=== PATIENT | female | born 1975 | race American Indian/Alaskan Native ===

== ENCOUNTER 2017-07-22 19:23 | Emergency (ER) | payer SELFPAY ==
[2017-07-22 20:09] LABS: Basophils # (Auto) 0.1 K/mm3 (0.0-0.1); Basophils % (Auto) 0.7 % (0.0-1.8); Eosinophils % (Auto) 0.3 % (0.0-4.3); Hemoglobin 8.9 gm/dl (10.1-14.3); Lymphocytes # (Auto) 1.1 K/mm3 (1.2-5.4); Lymphocytes % (Auto) 10.6 % (13.4-35.0); Mean Corpuscular HGB Conc 30 % (30-34); Red Blood Count 5.62 M/mm3 (3.65-5.03)
[2017-07-22 20:10] LABS: Hematocrit 29.8 % (30.3-42.9); Mean Corpuscular Hemoglobin 16 pg (28-32); Mean Corpuscular Volume 53 fl (79-97); Platelet Count 185 K/mm3 (140-440); Red Cell Distribution Width 22.7 % (13.2-15.2)
[2017-07-22 20:20] LABS: BUN/Creatinine Ratio 10; Blood Urea Nitrogen 5 mg/dL (7-17); Calcium 8.6 mg/dL (8.4-10.2); Hemolysis Index 12
[2017-07-22] MEDS ORDERED: TYLENOL PO ONE (20:38)
[2017-07-22] MEDS ORDERED: NACL 0.9% 1000 ML 1,000 ML IV ONE (20:38)
[2017-07-22] MEDS ORDERED: TORADOL IV ONE (20:38)
[2017-07-22] MEDS ORDERED: ZOFRAN IV ONE (20:38)
[2017-07-22] MEDS ORDERED: PROVENTIL IH ONE (20:39)
--- NOTE | 2017-07-22 20:40 | Emergency Department Report ---
ED General Adult HPI - General Chief complaint: Upper Respiratory Infection Stated complaint: GENERAL ILLNESS Time Seen by Provider: 07/22/17 20:11 Source: patient, RN notes reviewed Mode of arrival: Ambulatory Limitations: No Limitations - History of Present Illness Initial comments: This is a 41-year-old female, the patient is previously unknown to this provider , she does not have a local primary care doctor, who reports a past medical history of hypertension. Her last menstrual period was June 22, and she has not delivered her given within the past 2 months. Patient presents to the ER with a complaint of frontal headache, shortness of breath, cough, chills, nausea, vomiting 2, chest wall pain with coughing since . Patient reports multiple recent trips to various states for work. There is no leg pain and there is no leg swelling, there is no hematemesis, there is no bright red blood per rectum, there is no neck pain, there is no neck stiffness. -: Gradual, days(s) Location: chest Radiation: non-radiation Quality: aching Consistency: intermittent Improves with: rest Worsens with: movement Associated Symptoms: chest pain, cough, fever/chills, loss of appetite, malaise , shortness of breath, weakness. denies: confusion, diaphoresis, headaches, nausea/vomiting, rash, seizure, syncope - Related Data Previous Rx's Medication Instructions Recorded Last Taken Type HYDROcodone/APAP 5-325 [[place] 1 each PO Q6HR PRN #20 tablet 04/11/15 Unknown Rx 5/325] Hydrochlorothiazide [HCTZ] 25 mg PO QDAY #30 tablet 04/11/15 Unknown Rx Acetaminophen [Tylenol Arthritis] 650 mg PO Q6HR PRN #30 tablet.er 07/23/17 Unknown Rx Albuterol Sulfate [Proair 90 mcg IH Q4HR PRN #2 aer.pow.ba 07/23/17 Unknown Rx Respiclick] Azithromycin [Zithromax TAB] 250 mg PO QDAY #4 tablet 07/23/17 Unknown Rx Ibuprofen [Motrin] 600 mg PO Q8H PRN #30 tablet 07/23/17 Unknown Rx Ondansetron [Zofran Odt] 4 mg PO Q8HR PRN #20 tab.rapdis 07/23/17 Unknown Rx Allergies Allergy/AdvReac Type Severity Reaction Status Date / Time No Known Allergies Allergy Unverified 04/11/15 13:51 ED Review of Systems ROS: Stated complaint: GENERAL ILLNESS Other details as noted in HPI Comment: All other systems reviewed and negative ED Past Medical Hx - Past Medical History Hx Hypertension: Yes - Surgical History Past Surgical History?: No - Social History Smoking Status: Never Smoker Substance Use Type: None - Medications Home Medications: Home Medications Medication Instructions Recorded Confirmed Last Taken Type HYDROcodone/APAP 5-325 [[place] 1 each PO Q6HR PRN #20 tablet 04/11/15 Unknown Rx 5/325] Hydrochlorothiazide [HCTZ] 25 mg PO QDAY #30 tablet 04/11/15 Unknown Rx Acetaminophen [Tylenol Arthritis] 650 mg PO Q6HR PRN #30 tablet.er 07/23/17 Unknown Rx Albuterol Sulfate [Proair 90 mcg IH Q4HR PRN #2 aer.pow.ba 07/23/17 Unknown Rx Respiclick] Azithromycin [Zithromax TAB] 250 mg PO QDAY #4 tablet 07/23/17 Unknown Rx Ibuprofen [Motrin] 600 mg PO Q8H PRN #30 tablet 07/23/17 Unknown Rx Ondansetron [Zofran Odt] 4 mg PO Q8HR PRN #20 tab.rapdis 07/23/17 Unknown Rx ED Physical Exam - General Limitations: No Limitations General appearance: alert, in no apparent distress - Head Head exam: Present: atraumatic, normocephalic - Eye Eye exam: Present: normal appearance, PERRL, EOMI, other (visual acuity intact to finger counting, color perception, reading at a close distance). Absent: nystagmus - ENT ENT exam: Present: normal exam, normal orophraynx, mucous membranes moist, normal external ear exam - Neck Neck exam: Present: normal inspection, full ROM - Respiratory Respiratory exam: Present: rhonchi (rhonchi/rales noted in the left lower lung field). Absent: respiratory distress, wheezes, accessory muscle use, decreased breath sounds, prolonged expiratory - Cardiovascular Cardiovascular Exam: Present: regular rate, normal rhythm, systolic murmur ( there is a 2/6 systolic murmur, crescendo decrescendo in the right and left second intercostal space, radiates up to the bilateral neck). Absent: diastolic murmur, rubs, gallop - GI/Abdominal GI/Abdominal exam: Present: soft, normal bowel sounds. Absent: distended, tenderness, guarding, rebound, rigid, pulsatile mass - Extremities Exam Extremities exam: Present: normal inspection, full ROM, normal capillary refill. Absent: pedal edema, joint swelling, calf tenderness - Back Exam Back exam: Present: normal inspection, full ROM. Absent: tenderness, CVA tenderness (R), paraspinal tenderness, vertebral tenderness - Neurological Exam Neurological exam: Present: alert, oriented X3, CN II-XII intact (there is no pass pointing. There is negative [id number]. There is negative pronator drift.), other (Extraocular movements intact. Tongue midline. No facial droop. Facial sensation intact to light touch in the V1, V2, V3 distribution bilaterally. 5 and 5 strength in 4 extremities.. Sensation is intact to light touch in 4 extremities.). Absent: motor sensory deficit - Psychiatric Psychiatric exam: Present: normal affect, normal mood - Skin Skin exam: Present: warm, dry, intact, normal color. Absent: rash ED Course Vital Signs 07/22/17 07/22/17 07/22/17 15:33 19:27 19:32 Temperature 100.9 F H Pulse Rate 103 H 100 H Respiratory 20 25 H Rate Blood Pressure 117/69 175/75 117/69 O2 Sat by Pulse 96 92 97 Oximetry 07/22/17 07/22/17 07/22/17 19:41 19:45 20:10 Temperature 102.9 F H Pulse Rate 99 H Respiratory 21 18 Rate Blood Pressure 140/72 O2 Sat by Pulse 98 97 Oximetry 07/22/17 07/22/17 07/22/17 20:15 20:31 20:45 Temperature Pulse Rate 99 H 94 H 93 H Respiratory 13 25 H 26 H Rate Blood Pressure 140/72 140/72 140/72 O2 Sat by Pulse 96 97 97 Oximetry 07/22/17 07/22/17 07/22/17 21:01 21:15 21:16 Temperature Pulse Rate 91 H 86 Respiratory 31 H 22 18 Rate Blood Pressure 152/85 152/85 O2 Sat by Pulse 96 100 Oximetry 07/22/17 07/22/17 07/22/17 21:30 21:45 22:00 Temperature Pulse Rate 95 H 98 H 100 H Respiratory 29 H 21 21 Rate Blood Pressure 139/62 139/62 139/71 O2 Sat by Pulse 99 96 87 Oximetry 07/22/17 07/22/17 07/22/17 22:15 22:30 22:45 Temperature Pulse Rate 97 H 98 H 95 H Respiratory 23 28 H 29 H Rate Blood Pressure 139/71 131/69 131/69 O2 Sat by Pulse 94 88 94 Oximetry 07/22/17 07/22/17 07/22/17 23:00 23:15 23:30 Temperature Pulse Rate 93 H 89 88 Respiratory 25 H 27 H 26 H Rate Blood Pressure 134/70 134/70 129/79 O2 Sat by Pulse 94 100 97 Oximetry 07/22/17 07/23/17 23:45 00:00 Temperature Pulse Rate 88 83 Respiratory 26 H Rate Blood Pressure 129/79 147/74 O2 Sat by Pulse 99 97 Oximetry - Reevaluation(s) Reevaluation #1: 07/23/17 00:52 Patient reassessed multiple times while in the emergency department. She feels much improved after appropriate supportive care. Her d-dimer was elevated, and a CT scan of the chest suggested a left lower lobe pneumonia/pneumonitis, consistent with her history and physical examination. The patient is tolerating oral feeds and does not have significant medical comorbidities, and she is suitable for trial of outpatient management, and will be discharged with appropriate antibiotics, pain medication, nausea medication. Patient is instructed to follow-up with an outpatient primary care doctor and sausage linker. Her family is at the bedside, she is suitable for discharge. Return precautions are reviewed. ED Medical Decision Making - Lab Data Result diagrams: 07/22/17 19:38 07/22/17 19:38 Vital Signs 07/22/17 07/22/17 07/22/17 19:27 19:41 20:10 Temperature 100.9 F H 102.9 F H Pulse Rate 103 H Respiratory 20 18 Rate Blood Pressure 175/75 O2 Sat by Pulse 92 97 Oximetry 07/22/17 07/22/17 21:15 21:16 Temperature Pulse Rate Respiratory 18 18 Rate Blood Pressure O2 Sat by Pulse Oximetry Lab Results 07/22/17 07/22/17 07/22/17 Range/Units 19:38 19:38 20:41 WBC 10.4 (4.5-11.0) K/mm3 RBC 5.62 H (3.65-5.03) M/mm3 Hgb 8.9 L (10.1-14.3) gm/dl Hct 29.8 L (30.3-42.9) % MCV 53 L (79-97) fl MCH 16 L (28-32) pg MCHC 30 (30-34) % RDW 22.7 H (13.2-15.2) % Plt Count 185 (140-440) K/mm3 Lymph % (Auto) 10.6 L (13.4-35.0) % Bacon % (Auto) 10.0 H (0.0-7.3) % Eos % (Auto) 0.3 (0.0-4.3) % Baso % (Auto) 0.7 (0.0-1.8) % Lymph # 1.1 L (1.2-5.4) K/mm3 Bacon # 1.0 H (0.0-0.8) K/mm3 Eos # 0.0 (0.0-0.4) K/mm3 Baso # 0.1 (0.0-0.1) K/mm3 Seg Neutrophils % 78.4 H (40.0-70.0) % Seg Neutrophils # 8.1 H (1.8-7.7) K/mm3 PT 15.4 H (12.2-14.9) Sec. INR 1.16 H (0.87-1.13) D-Dimer 3109.33 H (0-234) ng/mlDDU Sodium 137 (137-145) mmol/L Potassium 3.5 L (3.6-5.0) mmol/L Chloride 95.5 L (98-107) mmol/L Carbon Dioxide 28 (22-30) mmol/L Anion Gap 17 mmol/L BUN 5 L (7-17) mg/dL Creatinine 0.5 L (0.7-1.2) mg/dL Estimated GFR > 60 ml/min BUN/Creatinine Ratio 10 % Glucose 135 H (65-100) mg/dL Calcium 8.6 (8.4-10.2) mg/dL Total Creatine Kinase (30-135) units/L Troponin T (0.00-0.029) ng/mL HCG, Quant (0-4) mIU/mL 07/22/17 07/22/17 07/22/17 Range/Units 20:41 20:41 20:41 WBC (4.5-11.0) K/mm3 RBC (3.65-5.03) M/mm3 Hgb (10.1-14.3) gm/dl Hct (30.3-42.9) % MCV (79-97) fl MCH (28-32) pg MCHC (30-34) % RDW (13.2-15.2) % Plt Count (140-440) K/mm3 Lymph % (Auto) (13.4-35.0) % Bacon % (Auto) (0.0-7.3) % Eos % (Auto) (0.0-4.3) % Baso % (Auto) (0.0-1.8) % Lymph # (1.2-5.4) K/mm3 Bacon # (0.0-0.8) K/mm3 Eos # (0.0-0.4) K/mm3 Baso # (0.0-0.1) K/mm3 Seg Neutrophils % (40.0-70.0) % Seg Neutrophils # (1.8-7.7) K/mm3 PT (12.2-14.9) Sec. INR (0.87-1.13) D-Dimer (0-234) ng/mlDDU Sodium (137-145) mmol/L Potassium (3.6-5.0) mmol/L Chloride (98-107) mmol/L Carbon Dioxide (22-30) mmol/L Anion Gap mmol/L BUN (7-17) mg/dL Creatinine (0.7-1.2) mg/dL Estimated GFR ml/min BUN/Creatinine Ratio % Glucose (65-100) mg/dL Calcium (8.4-10.2) mg/dL Total Creatine Kinase 214 H (30-135) units/L Troponin T < 0.010 (0.00-0.029) ng/mL HCG, Quant < 2 (0-4) mIU/mL - EKG Data -: EKG Interpreted by Ca EKG shows normal: sinus rhythm Rate: normal - EKG Data When compared to previous EKG there are: previous EKG unavailable 07/23/17 00:27 Sinus tachycardia, 100 bpm, normal axis, QTC within normal limits, normal intervals, poor R-wave progression, borderline high left ventricular voltage, abnormal EKG, consistent with a STEMI, unchanged from prehospital EKG. - Radiology Data Radiology results: report reviewed, image reviewed X-ray the chest is negative for acute disease - Medical Decision Making Differential diagnosis, including the not limited to: Pneumonia, viral syndrome , pulmonary embolus, costochondritis, pericarditis, myocarditis Assessment and plan: 41-year-old female with low-grade fever, tachycardia, focal breath sounds noted in her left lower lung barcenas on physical exam, x-ray the chest is negative, but have high suspicion for pneumonia clinically. However, patient reports numerous trips in the past month for her job, and given low-grade fever and tachycardia, as well as endorsed shortness of breath and near syncope, d-dimer was ordered, and elevated. CT scan of the chest is pending, patient given IV fluids, Tylenol, Toradol, albuterol, patient will be reassessed. Low risk for major adverse cardiac event, chest wall pain present for days, patient low risk by MICHELLE score, low risk by heart score, as per the emergency physician's clinical policy, myocardial infarction may be excluded with one set of troponin such cardiac enzymes if symptoms have present for greater than 8 hours. Critical care attestation.: If time is entered above; I have spent that time in minutes in the direct care of this critically ill patient, excluding procedure time. ED Disposition Clinical Impression: Left lower lobe pneumonia Disposition: DC-01 TO HOME OR SELFCARE Is pt being admited?: No Does the pt Need Aspirin: No Condition: Stable Instructions: Bacterial Pneumonia (ED) Additional Instructions: Follow-up with a sausage linker within the next 4-6 weeks for cardiac murmur suggestive of aortic stenosis. Take the pain medication, nausea medication as needed/directed. Take antibiotics, breathing medication as directed. Follow up in 3-4 days for a recheck. Follow-up with either her primary care doctor, or urgent care center , or return to the ER for repeat evaluation. Return to the ER right away with lethargy, irritability, projectile vomiting, change in mental status, confusion , worsening shortness of breath, inability to tolerate liquid feeds. Referrals: RYAN BEEBE MD [Primary Care Provider] - 3-5 Days [facility] [Provider Group] - 3-5 Days [facility] [Provider Group] - 3-5 Days [facility] [Provider Group] - 3-5 Days
--- NOTE | 2017-07-22 21:34 | XRay Report ---
FINAL REPORT PROCEDURE: XR CHEST ROUTINE 2V TECHNIQUE: PA and lateral chest radiographs were obtained. CPT 00179 HISTORY: Shortness of breath COMPARISON: No prior studies are available for comparison. FINDINGS: Heart: Heart is enlarged.. Mediastinum/Vessels: Normal. Lungs/Pleural space: Lungs are clear and expanded. There are no infiltrates, effusions or pneumothoraces.. Bony thorax: No acute osseous abnormality. Other: IMPRESSION: Heart is enlarged. Lungs are clear..
[2017-07-22 21:36] LABS: INR 1.16 (0.87-1.13)
[2017-07-22] MEDS ORDERED: NACL ONE (23:51)
--- NOTE | 2017-07-23 00:48 | Cat Scan Report ---
FINAL REPORT PROCEDURE: CT ANGIO CHEST TECHNIQUE: Computerized tomographic angiography of the chest was performed after the IV injection of iodinated nonionic contrast including image processing. The image data was postprocessed using 2-dimensional multiplanar reformatted (MPR) and 3-dimensional (MIP and/or volume rendered) techniques. HISTORY: cp sob ? lll pneumonia COMPARISON: No prior studies are available for comparison. FINDINGS: Heart and pericardium: The heart is enlarged.. Thoracic aorta: There is no thoracic aortic aneurysm or dissection.. Pulmonary vasculature: There is no pulmonary embolism.. Lymph nodes: No enlarged thoracic lymph nodes. Lungs: There are left lower lobe pulmonary infiltrates. The lungs are otherwise clear and expanded.. Pleural space: No effusion, thickening, or pneumothorax. Musculoskeletal structures: No significant abnormality. Upper abdominal structures: No significant abnormality. IMPRESSION: The heart is enlarged. There is no thoracic aortic aneurysm or dissection. There is no pulmonary embolism. Focal acute left lower lobe pneumonitis.
[2017-07-23] MEDS ORDERED: ROCEPHIN/NS 1 GM/50 ML 1 GM/50 ML BAG IV ONE (00:52)
[2017-07-23] MEDS ORDERED: ZITHROMAX PO ONE (00:52)
[2017-07-23 01:59] VITALS: BP 150/80
== END 2017-07-23 01:45 | disposition home or self-care (01) ==
LOC: ED 19:23
DX: J18.9 Pneumonia, unspecified organism (principal); I10 Essential (primary) hypertension
CPT/HCPCS: 36415; 71046; 71275; 80048; 82550; 84484; 84702; 85025; 85379; 85610; 93005; 93010; 96361; 96365; 96375; 99285; J1885; J2405; J7030; Q9967

== ENCOUNTER 2018-09-24 15:11 | Emergency (ER) | payer OTHER ==
--- NOTE | 2018-09-24 15:45 | Emergency Department Report ---
HPI - General Chief Complaint: Extremity Injury, Lower Time Seen by Provider: 09/24/18 15:36 - HPI HPI: She was a pleasant 43-year-old comes in with acute on chronic knee pain. She started a job and it is requiring her to walk and stand quite a bit more than she is used to. And this seems to be aggravating an old injury. She states that the knee has hurt for years. Patient is morbidly obese. Patient denies being on any medications at this time. ED Past Medical Hx - Past Medical History Hx Hypertension: Yes - Surgical History Past Surgical History?: No - Family History Family history: no significant - Social History Smoking Status: Never Smoker Substance Use Type: None - Medications Home Medications: Home Medications Medication Instructions Recorded Confirmed Last Taken Type hydroCHLOROthiazide [HCTZ] 25 mg PO QDAY #30 tablet 04/11/15 Unknown Rx Albuterol Sulfate [Proair 90 mcg IH Q4HR PRN #2 aer.pow.ba 07/23/17 Unknown Rx Respiclick] predniSONE [Deltasone] 20 mg PO DAILY #5 tablet 09/24/18 Unknown Rx ED Review of Systems ROS: Stated complaint: R KNEE PAIN Other details as noted in HPI Comment: All other systems reviewed and negative Physical Exam - Physical Exam Physical Exam: WDWN patient in NAD VS per RN flow sheet Alert and oriented to person, place and time. S1-S2. No S3 or S4. No systolic or diastolic murmur. No JVD. No pitting edema. Lungs clear to auscultation bilaterally anteriorly and posteriorly. Abdomen soft nontender bowel soundsX4 Moves all extremities well. CAN FULLY EXTEND AND FLEX THE KNEE. NO CYST. NO JOINT LINE TENDERNESS. NO DISTAL SWELLING. DP PLUS 2. NO EFFUSION BUT LIMITED W BODY HABITUS. Mood and affect appropriate. ED Medical Decision Making - Radiology Data Radiology results: report reviewed, image reviewed - Medical Decision Making MEDICATED WITH TORADOL XRAY NOTED NEUROVASC INTACT DC HOME WITH ORTHO FOLLOW UP VS ARE NORMAL. RN ASKED TO DOCUMENT THEM. Critical care attestation.: If time is entered above; I have spent that time in minutes in the direct care of this critically ill patient, excluding procedure time. ED Disposition Clinical Impression: Knee pain, Arthritis, Morbid obesity, Joint effusion of knee Disposition: DC-01 TO HOME OR SELFCARE Is pt being admited?: No Does the pt Need Aspirin: No Condition: Stable Instructions: Knee Pain (ED) Additional Instructions: DIET TOLERATED MEDS ORDERED TODAY IN ER FOLLOW INSTRUCTIONS ON THE BOTTLE FOLLOW UP WITH DR AVENDAÑO IF THIS PERSISTS. YOU MAY NEED MRI ACTIVITY TOLERATED MOTRIN OR TYLENOL OVER THE COUNTER FOR PAIN RETURN TO THE ER FOR WORSENING SYMPTOMS NOT RELIEVED BY YOUR MEDICATIONS. REDUCING YOUR WEIGHT MAY HELP ICE AND ELEVATED WHEN AT HOME. Referrals: KATIA AVENDAÑO MD [Staff Physician] - 3-5 Days Forms: Work/School Release Form(ED) Time of Disposition: 16:29
[2018-09-24] MEDS ORDERED: TORADOL IM ONE (16:24)
--- NOTE | 2018-09-24 16:29 | XRay Report ---
PROCEDURE: XR KNEE 3V RT TECHNIQUE: AP, oblique, and lateral views of the right knee HISTORY: PAIN KNEE on the right COMPARISONS: None . FINDINGS: No acute fracture or dislocation is seen. The soft tissues demonstrate a small suprapatellar joint ef fusion. The bony mineralization is normal. There is moderate to severe joint space narrowing of the lateral joint compartment. There is mild krystian rowing of the medial joint compartment and the patellofemoral joint. A normal variant bipartite patella is noted with a large spur off the superior posterior patella IMPRESSION: No acute bony abnormality. Small joint effusion. 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
[2018-09-24 17:47] VITALS: BP 172/81
== END 2018-09-24 17:46 | disposition home or self-care (01) ==
LOC: ED 15:11
DX: M13.861 Other specified arthritis, right knee (principal); E66.01 Morbid (severe) obesity due to excess calories; M25.461 Effusion, right knee; I10 Essential (primary) hypertension; Z79.899 Other long term (current) drug therapy
CPT/HCPCS: 73562; 96372; 99283; J1885

== ENCOUNTER 2019-04-20 19:19 | Emergency (ER) | payer OTHER ==
--- NOTE | 2019-04-20 19:42 | Emergency Department Report ---
Blank Doc - Documentation Documentation: 43-year-old female that presents with URI symptoms. This initial assessment/diagnostic orders/clinical plan/treatment(s) is/are subject to change based on patient's health status, clinical progression and re- assessment by fellow clinical providers in the ED. Further treatment and workup at subsequent clinical providers discretion. Patient/guardians urged not to elope from the ED as their condition may be serious if not clinically assessed and managed. Initial orders include: 1- Patient sent to [facility] for further evaluation and treatment 2- CXR
[2019-04-20 19:43] VITALS: BP 232/94
--- NOTE | 2019-04-20 20:49 | XRay Report ---
CHEST 2 VIEWS INDICATION: cough. COMPARISON: 07/22/2017. FINDINGS: Support devices: None. Heart: Stable cardiomegaly. Lungs/Pleura: No acute air space or interstitial disease. No significant pleural effusion. IMPRESSION: No acute findings. Signer Name: Warren Horton MD Signed: 04/20/2019 8:45 PM Workstation Name: [id number]
--- NOTE | 2019-04-20 22:09 | Emergency Department Report ---
Minor Respiratory - HPI Chief Complaint: Upper Respiratory Infection Stated Complaint: COLD,WHEEZING, DIFF BREATHING Time Seen by Provider: 04/20/19 19:41 Duration: 4 Days Minor Respiratory: Yes Rhinorrhea (nasal congestion), Yes Able to Tolerate Fluids, Yes Cough, Yes Shortness of Breath, No Sore Throat, No Ear Pain, No Sick Contacts, No Hemoptysis, No Chest Pain, No Fever Other History: 43 year old -[place] female presents to the emergency room for productive cough and nasal congestion that started on . Patient states that she's noticed herself wheezing since . Patient reports a past medical history of hypertension was on hydrochlorothiazide 25 mg daily but has been off of it for almost a year. Patient does not have a primary care provider. ED Review of Systems ROS: Stated complaint: COLD,WHEEZING, DIFF BREATHING Other details as noted in HPI Comment: All other systems reviewed and negative ED Past Medical Hx - Past Medical History Previous Medical History?: Yes Hx Hypertension: Yes Additional medical history: murmur - Surgical History Past Surgical History?: No - Social History Smoking Status: Smoker, Current Status Unknown Substance Use Type: None - Medications Home Medications: Home Medications Medication Instructions Recorded Confirmed Last Taken Type ALBUTEROL NEB's [Proventil 0.083% 5 mg IH TID PRN #1 box 04/20/19 Unknown Rx NEBS] Albuterol Sulfate [Proair 90 mcg IH Q4HR PRN #2 aer.pow.ba 04/20/19 Unknown Rx Respiclick] hydroCHLOROthiazide [HCTZ] 25 mg PO QDAY #30 tablet 04/20/19 Unknown Rx predniSONE [Deltasone] 20 mg PO DAILY #5 tablet 04/20/19 Unknown Rx Minor Respiratory Exam - Exam General: Vital signs noted. No distress. Alert and acting appropriately. HEENT: Yes Moist Mucous Membranes, No Pharyngeal Erythema, No Pharyngeal Exudates, No Rhinorrhea, No Conjuctival Injection, No Frontal Tenderness, No Maxillary Tenderness Neck: Yes Supple, No Adenopathy Lungs: Yes Wheezes, No Good Air Exchange, No Ronchi, No Stridor, No Cough, No Labored Respirations, No Retractions, No Use of Accessory Muscles, No Other Abnormal Lung Sounds Heart: Yes Regular, No Murmur Abdomen: Yes Normal Bowel Sounds, No Tenderness, No Peritoneal Signs Skin: No Rash, No Edema Neurologic: Alert and oriented, no deficits. Musculoskeletal: Unremarkable. ED Course Vital Signs 04/20/19 19:41 Temperature 98.3 F Pulse Rate 87 Respiratory 16 Rate Blood Pressure 232/94 O2 Sat by Pulse 98 Oximetry ED Medical Decision Making - Radiology Data Radiology results: report reviewed Patient: JUDD ESCOBAR MR#: [id number] : 1975 Acct:[id number] Age/Sex: 43 / F ADM Date: 04/20/19 Loc: ED Attending Dr: Ordering Physician: ADRIANNE LAUREN NP Date of Service: 04/20/19 Procedure(s): XR chest routine 2V Accession Number(s): [id number] cc: ADRIANNE LAUREN NP Fluoro Time In Minutes: CHEST 2 VIEWS INDICATION: cough. COMPARISON: 07/22/2017. FINDINGS: Support devices: None. Heart: Stable cardiomegaly. Lungs/Pleura: No acute air space or interstitial disease. No significant pleural effusion. IMPRESSION: No acute findings. Signer Name: Warren Horton MD Signed: 04/20/2019 8:45 PM Workstation Name: [id number] Transcribed By: ES Dictated By: Warren Horton MD Electronically Authenticated By: Warren Horton MD Signed Date/Time: 04/20/192044 DD/ 43 TD/TT: - Medical Decision Making 43 year old -[place] female presents to the emergency room for productive cough and nasal congestion that started on . Patient states that she's noticed herself wheezing since . Patient reports a past me dical history of hypertension was on hydrochlorothiazide 25 mg daily but has been off of it for almost a year. Patient does not have a primary care provider. Chest x-ray is negative. Patient was started on Atrovent 0.5 mg inhalation, albuterol 5 mg inhalation and prednisone 60 mg by mouth. Critical care attestation.: If time is entered above; I have spent that time in minutes in the direct care of this critically ill patient, excluding procedure time. ED Disposition Clinical Impression: Hypertension, essential, benign, Wheezing, Cough Disposition: - TO HOME OR SELFCARE Is pt being admited?: No Does the pt Need Aspirin: No Condition: Stable Instructions: Hypertension (ED) Prescriptions: predniSONE [Deltasone] 20 mg PO DAILY #5 tablet hydroCHLOROthiazide [HCTZ] 25 mg PO QDAY #30 tablet Albuterol Sulfate [Proair Respiclick] 90 mcg IH Q4HR PRN #2 aer.pow.ba PRN Reason: Wheezing ALBUTEROL NEB's [Proventil 0.083% NEBS] 5 mg IH TID PRN #1 box PRN Reason: Shortness Of Breath Referrals: CHARLEE ELIAS MD [Staff Physician] - 3-5 Days Forms: Work/School Release Form(ED)
[2019-04-20] MEDS ORDERED: ALBUTEROL 2.5 MG/3 ML NEBU IH ONE (23:13)
[2019-04-20] MEDS ORDERED: predniSONE 20 MG TAB PO ONE (23:13)
[2019-04-20] MEDS ORDERED: IPRATROPIUM 0.02% NEBU 2.5 ML IH ONE (23:13)
== END 2019-04-20 23:55 | disposition home or self-care (01) ==
LOC: ED 19:19
DX: I10 Essential (primary) hypertension (principal); R06.2 Wheezing; R05 Cough; F17.200 Nicotine dependence, unspecified, uncomplicated
CPT/HCPCS: 71046; 99283; J7512

== ENCOUNTER 2020-11-04 19:06 | Emergency (ER) | payer OTHER ==
[2020-11-04 20:54] VITALS: BP 151/89
[2020-11-04 21:29] LABS: Basophils # (Auto) 0.1 K/mm3 (0.0-0.1); Basophils % (Auto) 1.4 % (0.0-1.8); Eosinophils # (Auto) 0.1 K/mm3 (0.0-0.4); Eosinophils % (Auto) 2.4 % (0.0-4.3); Hematocrit 31.2 % (30.3-42.9); Hemoglobin 9.8 gm/dl (10.1-14.3); Lymphocytes % (Auto) 20.4 % (13.4-35.0); Mean Corpuscular HGB Conc 31 % (30-34); Monocytes # (Auto) 0.5 K/mm3 (0.0-0.8); Monocytes % (Auto) 9.9 % (0.0-7.3); Platelet Count 236 K/mm3 (140-440)
[2020-11-04 21:30] LABS: Mean Corpuscular Volume 59 fl (79-97); Red Cell Distribution Width 22.2 % (13.2-15.2)
[2020-11-04 21:39] LABS: Albumin 3.7 g/dL (3.9-5)
== END 2020-11-05 03:20 | disposition left against medical advice (07) ==
LOC: ED 19:06
DX: M79.89 Other specified soft tissue disorders (principal); Z53.21 Procedure and treatment not carried out due to patient leaving prior to being seen by health care provider
CPT/HCPCS: 36415; 80053; 85025